=== PATIENT | female | born 1950 | race Caucasian/White ===

== ENCOUNTER → 2021-04-20 | Outpatient (CLI) | payer MEDICARE, SELFPAY ==
--- NOTE | 2021-04-20 09:15 | KNEE_PTH ---
PATIENT: SINA JUAN LOC: [facility] U#:[id number] AGE/SX: 70/F ROOM: RE04/20/[address]: Dr. Mika Griffith MD : 1950 BED: DIS: 04/20/2021 SPEC #: [id number] RECD: 04/20/21 15:07 STATUS: JOSE MELINDA #: [id number] MEHRAN: 04/20/21 09:[address]: Mika Griffith DEPT: SURGICAL PATHOLOGY RECD BY: Belkys Wilde ENTERED: 04/23/21 09:02 SP TYPE: TOTAL KNEE OTHR DR: GENIA Tissues: Knee, NOS Procedures: Decalcification bone/plaque Surgery Specimen Level IV HEADER OPERATION: Right total knee replacement PRE-OP DIAGNOSIS: Right knee primary osteoarthritis TISSUE SUBMITTED: Bone and soft tissue right knee MICROSCOPIC DIAGNOSIS Bone soft tissue, right knee, total knee replacement/resection: Pieces of bone with degenerative osteoarthritic changes. Fibroadipose tissue, fibroconnective tissue and reactive synovial tissue. Focal changes consistent with pseudogout. SJ:hcris 04/26/2021 MICROSCOPIC DESCRIPTION Slides are reviewed. GROSS DESCRIPTION Received is one container designated bone and soft tissue right knee. The specimen consists of multiple fragments of dodson-yellow bone measuring in aggregate 15 x 13 x 2 cm. Also in the specimen container are multiple fragments of yellow-white soft tissue measuring in aggregate 5 x 4 x 1 cm. A number of bony fragments contain articular surfaces consistent with tibial plateau and femoral condyle and displaying prominent osteophyte formation, eburnation, and bone erosion. Kiln Furniture Caster sections are submitted in two cassettes as follows: 1 - soft tissue, 2 - bone after decalcification. / AM:chris 04/23/21 TC:5 [facility]: [id number], [id number]
== END | disposition home or self-care (01) ==
PROVIDERS: Visit Provider Orthopaedic Surgery
DX: M17.11 Unilateral primary osteoarthritis, right knee (principal)
CPT/HCPCS: 88305; 88311

== ENCOUNTER → 2021-07-27 | Outpatient (CLI) | payer MEDICARE, SELFPAY ==
--- NOTE | 2021-07-27 08:02 | KNEE_PTH ---
PATIENT: SINA JUAN LOC: [facility] U#:[id number] AGE/SX: 70/F ROOM: RE07/27/[address]: Dr. Mika Griffith MD : 1950 BED: DIS: 07/27/2021 SPEC #: [id number] RECD: 07/27/21 14:56 STATUS: JOSE RERemi #: [id number] MEHRAN: 07/27/21 08:[address]: Mika Griffith DEPT: SURGICAL PATHOLOGY RECD BY: Belkys Wilde ENTERED: 07/30/21 10:05 SP TYPE: TOTAL KNEE OTHR DR: No Primary Care Phys [facility] Tissues: Knee, NOS Procedures: Decalcification bone/plaque Surgery Specimen Level IV HEADER OPERATION: Left total knee arthroplasty PRE-OP DIAGNOSIS: Primary osteoarthritis left knee TISSUE SUBMITTED: Bone left knee MICROSCOPIC DIAGNOSIS Bone and tissue of left knee, total knee resection: Consistent with severe degenerative joint disease. Mild synovial hyperplasia. AM:chris 08/02/2021 MICROSCOPIC DESCRIPTION Slides are reviewed. GROSS DESCRIPTION Received is one container designated bone and soft tissue left knee. The specimen consists of multiple fragments of dodson-yellow bone measuring in aggregate 16 x 15 x 2 cm. Also in the specimen container are multiple fragments of yellow-white soft tissue measuring in aggregate 3 x 2 x 1 cm. A number of bony fragments contain articular surfaces consistent with tibial plateau and femoral condyle and displaying prominent osteophyte formation, eburnation, and bone erosion. Flow Coordinator sections are submitted in two cassettes as follows: 1 - soft tissue, 2 - bone after decalcification. / AM:chris 07/30/21 TC:5 CPT: 91879, [id number]
== END | disposition home or self-care (01) ==
LOC: LABSPEC 15:36
PROVIDERS: Referring Provider Orthopaedic Surgery; Visit Provider Orthopaedic Surgery
DX: M17.12 Unilateral primary osteoarthritis, left knee (principal)
CPT/HCPCS: 88305; 88311